=== PATIENT | male | born 1950 | race Caucasian/White ===

== ENCOUNTER 2022-10-13 14:35 | Emergency (ER) | payer MEDICARE, OTHER ==
[2022-10-13 14:44] VITALS: O2SAT 97
--- NOTE | 2022-10-13 15:12 | ERPHSYRPT ---
- History of Present Illness Time Seen by Provider: 10/13/22 15:09 Historian: patient Exam Limitations: no limitations Patient Subjective Stated Complaint: PT states "I was cutting boxes with a utility knife in a downward angle and I hit my belly with the knife." Triage Nursing Assessment: Pt presented alert and oriented X 3, skin pwd. PT ambulates with an upright steady gait, able to speak in clear full sentences. Pt has laceration/puncture 2 cm x0.3 cm. Bleeding is controlled upon arrival. Physician History: Patient is a 72-year-old male presents to emergency department for evaluation status post injury with a call box wirer. Injury occurred just prior to arrival .patient was cutting cardboard boxes with a call box wirer when the call box wirer slipped and lacerated into his right abdomen. Patient states initially began to bleed. No significant pain at this time. Patient declined pain medication. Patient otherwise healthy. No other injuries reported. Patient voices no other complaints or concerns at this time. Portions of this note were created with voice recognition technology. There may be grammatical, spelling, punctuation or sound alike errors Timing/Duration: today Activities at Onset: none Quality: other (No active pain at this time.) Abdominal Pain Onset Location: unknown (Right mid abdomen) Pain Radiation: no radiation Severity of Pain-Max: moderate Severity of Pain-Current: mild Modifying Factors: Improves With: nothing Associated Symptoms: denies symptoms Previous symptoms: no prior history Allergies/Adverse Reactions: ethinyl estradiol [From Seasonale ()] Adverse Reaction (Mild, Verified 10/13/22 14:44) congestion levonorgestrel [From Seasonale ()] Adverse Reaction (Mild, Verified 10/13/22 14:44) congestion Hx Tetanus, Diphtheria Vaccination/Date Given: No Hx Influenza Vaccination/Date Given: No Hx Pneumococcal Vaccination/Date Given: No Immunizations Up to Date: No Travel Risk - International Travel Have you traveled outside of the country in past 3 weeks: No - Coronavirus Screening Are you exhibiting any of the following symptoms?: No Close contact with a COVID-19 positive Pt in past 14-21 Days: No - Vaccine Status Have you recieved a Covid-19 vaccination: No - Review of Systems Constitutional: No Symptoms, No Fever, No Chills Eyes: No Symptoms Ears, Nose, & Throat: No Symptoms Respiratory: No Symptoms, No Cough, No Dyspnea Cardiac: No Symptoms, No Chest Pain, No Edema, No Syncope Abdominal/Gastrointestinal: No Symptoms, No Abdominal Pain, No Nausea, No Vomiting, No Diarrhea Genitourinary Symptoms: No Symptoms, No Dysuria Musculoskeletal: No Symptoms, No Back Pain, No Neck Pain Skin: No Symptoms, No Rash Neurological: No Symptoms, No Dizziness, No Focal Weakness, No Sensory Changes Psychological: No Symptoms Endocrine: No Symptoms Hematologic/Lymphatic: No Symptoms Immunological/Allergic: No Symptoms All Other Systems: Reviewed and Negative - Past Medical History Pertinent Past Medical History: Yes Neurological History: No Pertinent History Cardiac History: No Pertinent History Respiratory History: No Pertinent History Endocrine Medical History: Other Musculoskeletal History: Osteoarthritis Other Medical History: Borderline DMII - Past Surgical History Past Surgical History: Yes Other Surgical History: left hip - Social History Smoking Status: Never smoker Exposure to second hand smoke: No Drug Use: none Patient Lives Alone: Yes - Nursing Vital Signs Nursing Vital Signs: Initial Vital Signs Temperature 98.1 F 10/13/22 14:36 Pulse Rate 69 10/13/22 14:36 Respiratory Rate 20 10/13/22 14:36 Blood Pressure 159/69 10/13/22 14:36 O2 Sat by Pulse Oximetry 97 10/13/22 14:36 Pain Scale Pain Intensity 0 - Physical Exam General Appearance: no apparent distress, alert Eye Exam: PERRL/EOMI, eyes nml inspection Ears, Nose, Throat Exam: normal ENT inspection, pharynx normal, moist mucous membranes Neck Exam: normal inspection, non-tender, supple, full range of motion Respiratory Exam: normal breath sounds, lungs clear, airway intact, No respiratory distress Cardiovascular Exam: regular rate/rhythm, normal heart sounds Gastrointestinal/Abdomen Exam: soft, other (2 cm laceration right lateral abdominal wall. No active bleeding.), No tenderness, No mass Back Exam: normal inspection, normal range of motion, No CVA tenderness, No vertebral tenderness Extremity Exam: normal inspection, normal range of motion, pelvis stable Neurologic Exam: alert, oriented x 3, cooperative, normal mood/affect, sensation nml, No motor deficits Skin Exam: normal color, warm, dry Lymphatic Exam: No adenopathy SpO2 Interpretation: normal SpO2: 97 O2 Delivery: Room Air Procedures - Laceration/Wound Repair Hip Time of Procedure: 16:19 Wound Length (cm): 2 Wound Explored: clean Irrigated: Yes Hibiclens Prep: Yes Anesthesia: local, 1% Lidocaine Volume Anesthetic (ccs): 4 Wound Repaired With: sutures (No debridement indicated) Suture Size/Type: 4-0, nylon Number of Sutures: 5 Layer Closure?: No Sterile Dressing Applied?: Yes Splint Applied?: No Progress: 10/13/22 16:20 Patient tolerated procedure well. No intra or postprocedural complications. - Course Nursing assessment & vital signs reviewed: Yes - CT Exams Abdomen/Pelvis CT Interpretation: Tele-radiologist Report (Diverticulosis, 1.7 cm gallstone, 4.4 cm left exophytic renal cyst) Ordered Tests: Active Orders 24 hr Category Date Time Status ABDOMEN AND PELVIS W/0 CONTRAS [CT] Stat Exams 10/13/22 14:37 Completed Medication Summary Discontinued Medications Generic Name Dose Route Start Last Admin Trade Name Freq PRN Reason Stop Dose Admin Diphtheria/Tetanus/Acell Pertussis 0.5 ml 10/13/22 16:21 10/13/22 16:27 Tdap --Diph,Pertuss(Acell),Tet Vac/Pf 0.5 Ml Vial IM 10/13/22 16:22 0.5 ml .ONCE ONE Administration Diphtheria/Tetanus/Acell Pertussis Confirm 10/13/22 16:25 Tdap --Diph,Pertuss(Acell),Tet Vac/Pf 0.5 Ml Vial Administered 10/13/22 16:26 Dose 0.5 ml IM .STK-MED ONE Lidocaine HCl Confirm 10/13/22 15:53 Lidocaine Hcl 1% 20 Ml Mdv 20 Ml Ml Administered 10/13/22 15:54 Dose 1 ml .ROUTE .STK-MED ONE Lidocaine HCl 4 ml 10/13/22 16:22 10/13/22 16:27 Lidocaine Hcl 1% 20 Ml Mdv 20 Ml Ml IJ 10/13/22 16:23 4 ml STAT ONE Administration Lidocaine HCl Confirm 10/13/22 16:25 Lidocaine Hcl 1% 20 Ml Mdv 20 Ml Ml Administered 10/13/22 16:26 Dose 4 ml .ROUTE .STK-MED ONE - Progress Progress: improved Progress Note: 72-year-old male presents to our ED with a laceration to the abdominal wall using a call box wirer. The injury was accidental. CT scan did not reveal violation of the peritoneum. No free air or fluid observed. 10/13/22 16:21 Patient presenting complaint is acute. Complexity of problem addressed is low acute uncomplicated. No critical care time Complexity of data reviewed and analyzed is low. CT scan ordered. Report reviewed by Dr. Connelly. Incidental finding of a left renal cyst, gallstone diverticulosis. Risk of complication and or risk morbidity/mortality patient management is moderate. Tetanus is not up-to-date. Patient received a dose of Adacel in our ED. A prophylactic course of antibiotic forwarded to patient's pharmacy. We will discharge home. Patient agrees to follow-up with his primary care doctor within 48 hours for reevaluation. Vital stable. Portions of this note were created with voice recognition technology. There may be grammatical, spelling, punctuation or sound alike errors 10/13/22 16:33 Counseled pt/family regarding: diagnosis, need for follow-up, rad results - Departure Departure Disposition: Home Clinical Impression: Gallstone, Left renal exophytic cyst, Diverticulosis, Laceration Condition: Stable Critical Care Time: No Referrals: DIGNA DAWSON [NON-STAFF PHY W/O PRIVILEGES] - Follow up/PCP as directed Instructions: Laceration Repair With Marcy (DC) Additional Instructions: Discharge/Care Plan STALIN TSAI was seen on 10/13/22 in the Emergency Room. The patient was counseled regarding Diagnosis,Lab results, Imaging studies, need for follow up and when to return to the Emergency Room. Prescriptions given: Discharge Note I have spoken with the patient and/or caregivers. I have explained the patient's condition, diagnosis and treatment plan based on the information available to me at this time. I have answered the patient's and/or caregiver's questions and addressed any concerns. The patient and/or caregivers have as good understanding of the patient's diagnosis, condition and treatment plan as can be expected at this point. The vital signs have been stable. The patient's condition is stable and appropriate for discharge from the emergency department. The patient will pursue further outpatient evaluation with the primary care phys ician or other designated or consulting physician as outlined in the discharge instructions. The patient and/or caregivers are agreeable to this plan of care and follow-up instructions have been explained in detail. The patient and/or caregivers have received these instruction. The patient/and or caregivers are aware that any significant change in condition or worsening of symptoms should prompt an immediate return to this or the closest emergency department or call 911. Prescriptions: Cephalexin Mh 500 mg [Keflex 500 mg] 500 mg PO TID #21 cap
--- NOTE | 2022-10-13 15:33 | XRAY ---
Indication: Right intra-abdominal wall laceration. Multiple contiguous axial images obtained through the abdomen and pelvis without contrast. Cutaneous BB placed over region of interest. Comparison: None Lung bases demonstrates dependent atelectasis. No infiltrate, effusion, or pneumothorax. Heart not enlarged. Small hiatal hernia. Cutaneous BB seen right mid abdomen where there is tiny subcutaneous air bubble from laceration. No focal solid/cystic mass, abnormal fluid collection, or ventral hernia. Noncontrasted stomach and bowel loops appear nonobstructed with normal appendix. Mild diffuse scattered colonic fecal debris and moderate diffuse scattered colonic diverticulosis without diverticulitis. 1.7 cm gallstone and 4.4 cm left renal exophytic cyst. No free fluid/air. Remaining liver, gallbladder, pancreas, spleen, adrenal glands, kidneys, ureters, and bladder are unremarkable for noncontrast exam. Minimal aortoiliac calcifications without AAA. Osseous structures intact with osteopenia, mild degenerative changes throughout the spine, and left total hip arthroplasty Impression: 1. Subcutaneous air bubble at site of laceration. 2. Mild diffuse fecal stasis. 3. Chronic findings including small hiatal hernia, gallstone, left renal exophytic cyst, chronic bony findings, and minimal arteriosclerotic disease.
[2022-10-13] MEDS ORDERED: XYLOCAINE 1% HCL 20 ML MDV ONE ×2 (15:53→16:25)
[2022-10-13] MEDS ORDERED: Adacel Vial IM ONE ×2 (16:21→16:25)
[2022-10-13 16:22] VITALS: BP 126/70; PULSE 70
[2022-10-13] MEDS ORDERED: XYLOCAINE 1% HCL 20 ML MDV IJ ONE (16:22)
== END 2022-10-13 16:40 | disposition home or self-care (01) ==
LOC: ED 14:35
DX: S31.119A Laceration without foreign body of abdominal wall, unspecified quadrant without penetration into peritoneal cavity, initial encounter (principal); W26.0XXA Contact with knife, initial encounter; K80.20 Calculus of gallbladder without cholecystitis without obstruction; N28.1 Cyst of kidney, acquired; K57.90 Diverticulosis of intestine, part unspecified, without perforation or abscess without bleeding; Z28.310 Unvaccinated for COVID-19
CPT/HCPCS: 12001; 74176; 90471; 90715; 99284

== ENCOUNTER 2022-10-24 14:30 | Emergency (ER) | payer OTHER ==
--- NOTE | 2022-10-24 14:35 | ERPHSYRPT ---
- History of Present Illness Time Seen by Provider: 10/24/22 14:35 Source: patient Exam Limitations: no limitations Physician History: Patient is a 72-year-old male who underwent laceration repair of a 1-1/2 cm skin laceration right lower quadrant of the abdominal wall. There have been no complaints with regard to the laceration repair site. Patient is here for wound evaluation and suture removal. Quality: other (No pain) Location: other (Skin of the abdominal wall right lower quadrant) Associated Symptoms: denies symptoms Allergies/Adverse Reactions: ethinyl estradiol [From Seasonale ()] Adverse Reaction (Mild, Verified 10/13/22 14:44) congestion levonorgestrel [From Seasonale ()] Adverse Reaction (Mild, Verified 10/13/22 14:44) congestion Hx Tetanus, Diphtheria Vaccination/Date Given: No Hx Influenza Vaccination/Date Given: No Hx Pneumococcal Vaccination/Date Given: No Travel Risk - International Travel Have you traveled outside of the country in past 3 weeks: No - Coronavirus Screening Are you exhibiting any of the following symptoms?: No Close contact with a COVID-19 positive Pt in past 14-21 Days: No - Vaccine Status Have you recieved a Covid-19 vaccination: No - Review of Systems Constitutional: No Symptoms Eyes: No Symptoms Ears, Nose, & Throat: No Symptoms Respiratory: No Symptoms Cardiac: No Symptoms Abdominal/Gastrointestinal: No Symptoms Genitourinary Symptoms: No Symptoms Musculoskeletal: No Symptoms Skin: No Symptoms Neurological: No Symptoms Psychological: No Symptoms Endocrine: No Symptoms Hematologic/Lymphatic: No Symptoms Immunological/Allergic: No Symptoms All Other Systems: Reviewed and Negative - Past Medical History Pertinent Past Medical History: Yes Neurological History: No Pertinent History Cardiac History: No Pertinent History Respiratory History: No Pertinent History Endocrine Medical History: Other Musculoskeletal History: Osteoarthritis Other Medical History: Borderline DMII - Past Surgical History Past Surgical History: Yes Other Surgical History: left hip - Social History Smoking Status: Never smoker Exposure to second hand smoke: No Drug Use: none Patient Lives Alone: Yes - Nursing Vital Signs Nursing Vital Signs: Initial Vital Signs Temperature 97.3 F 10/24/22 14:38 Pulse Rate 63 10/24/22 14:38 Respiratory Rate 15 10/24/22 14:38 Blood Pressure 164/77 10/24/22 14:38 O2 Sat by Pulse Oximetry 97 10/24/22 14:38 Pain Scale Pain Intensity 0 - Physical Exam General Appearance: no apparent distress, alert, anxiety Eye Exam: PERRL/EOMI, eyes nml inspection Ears, Nose, Throat Exam: normal ENT inspection, moist mucous membranes Neck Exam: normal inspection, non-tender, supple, full range of motion Respiratory Exam: airway intact, No chest tenderness, No respiratory distress Gastrointestinal/Abdomen Exam: No tenderness Rectal Exam: not done Back Exam: normal inspection, normal range of motion, No CVA tenderness, No vertebral tenderness Extremity Exam: normal inspection, normal range of motion, pelvis stable Neurologic Exam: alert, oriented x 3, cooperative, medicaid service coordinator II-XII nml as tested, normal mood/affect, nml cerebellar function, nml station & gait, sensation nml Skin Exam: laceration (Surgery repair site clean dry intact with 5 nylon sutures. Sutures removed. Area was cleaned dried and bandage was placed overlying) Lymphatic Exam: No adenopathy SpO2 Interpretation: normal O2 Delivery: Room Air - Progress Progress: improved Progress Note: 10/24/22 14:56 This patient's medical issue is 1 of low complexity. No laboratory or radiographic studies necessary. Counseled pt/family regarding: diagnosis, need for follow-up Medical Desision Making - Diagnostic Testing Diagnostic test were ordered, analyzed, and reviewed by me: No - Risk of complications Minimal Risk: Minimal risk of morbidity - Departure Departure Disposition: Home Clinical Impression: Visit for suture removal Condition: Stable Critical Care Time: No Referrals: TONIE CARLISLE MD [Primary Care Provider] - Follow up/PCP as directed Additional Instructions: Keep the area clean and dry. Avoid excessive activity and excessive moisture. Cover the site with a bandage daily and change as necessary.
[2022-10-24 15:06] VITALS: BP 159/74; PULSE 67; O2SAT 96
== END 2022-10-24 15:06 | disposition home or self-care (01) ==
LOC: ED 14:30
DX: Z48.02 Encounter for removal of sutures (principal)
CPT/HCPCS: 99281

== ENCOUNTER 2022-12-03 17:48 | Emergency (ER) | payer MEDICARE ==
[2022-12-03 18:39] LABS: Absolute Neutrophil Ct (ANC) 8.06 x10^3/uL (1.4-6.9); BASOPHIL % 0.2 % (0.0-0.4); Basophil (Absolute #) 0.02 x10^3/uL (0-0.4); Eosinophil % 0.4 % (0.00-5.0); Eosinophil (Absolute #) 0.04 x10^3/uL (0-0.5); Hematocrit 41.2 % (42-50); Hemoglobin 13.6 g/dL (12.5-18.0); IMMATURE GRAN # 0.04 x10^3u/L (0.00-0.03); IMMATURE GRAN % 0.4 % (0.00-0.4); Lymphocyte (Absolute #) 1.27 x10^3/uL (1.0-4.6); Lymphocytes % 12.1 % (24.0-44.0); Mean Corpuscular Hemoglobin 29.7 pg (26-32); Mean Platelet Volume 10.7 fL (7.5-11.0); Monocyte (Absolute #) 1.09 x10^3/uL (0.0-1.3); Monocytes % 10.4 % (0.0-12.0); Neutrophil % 76.5 % (36.0-66.0); Platelet Count 179 x10^3/uL (150-450); Red Blood Count 4.58 x10^6/uL (4.1-5.6); Red Cell Distribution Width 13.5 % (11.5-14.0); White Blood Count 10.5 x10^3/uL (4.0-10.5)
--- NOTE | 2022-12-03 18:45 | ERPHSYRPT ---
- History of Present Illness Historian: patient Exam Limitations: no limitations Patient Subjective Stated Complaint: PT HERE FOR LOW GRADE FEVER, LOWER ABD PAIN OVER THE WEEKEND, NO PAIN NOW, Triage Nursing Assessment: PT ALERT, WALKED IN, RESP EASY, SKIN W/D/P, ABD SOFT, NO PAIN NOW Timing/Duration: day(s) (2 days) Activities at Onset: rest Quality: sharpness Abdominal Pain Onset Location: LLQ Pain Radiation: no radiation Severity of Pain-Max: moderate Severity of Pain-Current: none Modifying Factors: Improves With: nothing Associated Symptoms: denies symptoms, nausea Previous symptoms: no prior history Hx Tetanus, Diphtheria Vaccination/Date Given: No Hx Influenza Vaccination/Date Given: No Hx Pneumococcal Vaccination/Date Given: No Immunizations Up to Date: Yes <QUE ZAMORA - Last Filed: 12/03/22 19:00> <JAE CONNELLY - Last Filed: 12/03/22 20:25> - History of Present Illness Physician History: 72 yo WM w LLQ pain x 2 days. Pain is 0 now but has been up to a 7/10. It is described as sharp and nothing makes it better/worse. He has had nausea wo vomiting/diarrhea/melena/hematochezia/dysuria/hematuria/fever/chest pain. Pt has had no abdominal surgeries. (QUE ZAMORA) Allergies/Adverse Reactions: ethinyl estradiol [From e ()] Adverse Reaction (Mild, Verified 12/03/22 17:52) congestion levonorgestrel [From ()] Adverse Reaction (Mild, Verified 12/03/22 17:52) congestion Travel Risk - International Travel Have you traveled outside of the country in past 3 weeks: No - Coronavirus Screening Are you exhibiting any of the following symptoms?: Yes Symptoms: Fever Close contact with a COVID-19 positive Pt in past 14-21 Days: No - Vaccine Status Have you recieved a Covid-19 vaccination: No <QUE ZAMORA - Last Filed: 12/03/22 19:00> - Review of Systems Constitutional: No Symptoms Eyes: No Symptoms Ears, Nose, & Throat: No Symptoms Respiratory: No Symptoms Cardiac: No Symptoms Abdominal/Gastrointestinal: No Symptoms, Abdominal Pain, Nausea Genitourinary Symptoms: No Symptoms Musculoskeletal: No Symptoms Skin: No Symptoms Neurological: No Symptoms Psychological: No Symptoms Endocrine: No Symptoms Hematologic/Lymphatic: No Symptoms Immunological/Allergic: No Symptoms <NOAHQUE - Last Filed: 12/03/22 19:00> - Past Medical History Pertinent Past Medical History: Yes Neurological History: No Pertinent History Cardiac History: No Pertinent History Respiratory History: No Pertinent History Endocrine Medical History: Other Musculoskeletal History: Osteoarthritis GI Medical History: Diverticulitis Other Medical History: Borderline DMII - Past Surgical History Past Surgical History: Yes Other Surgical History: left hip - Social History Smoking Status: Never smoker Exposure to second hand smoke: No Drug Use: none Patient Lives Alone: No <NOAHQUE - Last Filed: 12/03/22 19:00> - Physical Exam General Appearance: no apparent distress Eye Exam: PERRL/EOMI, eyes nml inspection Ears, Nose, Throat Exam: normal ENT inspection, TMs normal, pharynx normal, moist mucous membranes Neck Exam: normal inspection, non-tender, supple, full range of motion, No meningismus, No mass, No Brudzinski, No Kernig's Respiratory Exam: normal breath sounds, lungs clear, airway intact Cardiovascular Exam: regular rate/rhythm, normal heart sounds, normal peripheral pulses, capillary refill <2 sec, No murmur Gastrointestinal/Abdomen Exam: soft, normal bowel sounds, tenderness (Mild LLQ TTP wo guarding or rebound) Extremity Exam: normal inspection, normal range of motion Neurologic Exam: alert, oriented x 3, cooperative, voice network engineer II-XII nml as tested, normal mood/affect, nml cerebellar function, nml station & gait, sensation nml Skin Exam: normal color, warm, dry Lymphatic Exam: No adenopathy SpO2 Interpretation: normal SpO2: 98 O2 Delivery: Room Air <NOAHQUE - Last Filed: 12/03/22 19:00> - Nursing Vital Signs Nursing Vital Signs: Initial Vital Signs Temperature 99.7 F 12/03/22 17:55 Pulse Rate 72 12/03/22 17:55 Respiratory Rate 18 12/03/22 17:55 Blood Pressure 150/64 12/03/22 17:55 O2 Sat by Pulse Oximetry 98 12/03/22 17:55 Pain Scale Pain Intensity 0 Hypertensive (QUE ZAMORA) - Course Nursing assessment & vital signs reviewed: Yes <QUE ZAMORA - Last Filed: 12/03/22 19:00> - CT Exams Abdomen/Pelvis CT Interpretation: Tele-radiologist Report (New mild distal descending diverticulitis with tiny free fluid. No free air. Stable hiatal hernia gallstone left renal cyst and diffuse diverticulosis) <JAE CONNELLY - Last Filed: 12/03/22 20:25> Ordered Tests: Active Orders 24 hr Category Date Time Status ABDOMEN AND PELVIS W/0 CONTRAS [CT] Stat Exams 12/03/22 18:30 Taken AMYLASE Stat Lab 12/03/22 18:35 Completed CBC W DIFF Stat Lab 12/03/22 18:35 Completed CMP Stat Lab 12/03/22 18:35 Completed LIPASE Stat Lab 12/03/22 18:35 Completed UA W/RFX UR CULTURE Stat Lab 12/03/22 18:47 Completed Lab/Rad Data: Laboratory Result Diagrams 12/03/22 18:35 12/03/22 18:35 Laboratory Results 12/03/22 12/03/22 12/03/22 Range/Units 18:47 18:35 18:35 WBC 10.5 (4.0-10.5) x10^3/uL RBC 4.58 (4.1-5.6) x10^6/uL Hgb 13.6 (12.5-18.0) g/dL Hct 41.2 L (42-50) % MCV 90.0 (78-100) fL MCH 29.7 (26-32) pg MCHC 33.0 (32-36) g/dL RDW 13.5 (11.5-14.0) % Plt Count 179 (150-450) x10^3/uL MPV 10.7 (7.5-11.0) fL Gran % 76.5 H (36.0-66.0) % Immature Gran % (Auto) 0.4 (0.00-0.4) % Nucleat RBC Rel Count 0.0 (0.00-0.1) % Eos # (Auto) 0.04 (0-0.5) x10^3/uL Immature Gran # (Auto) 0.04 H (0.00-0.03) x10^3u/L Absolute Lymphs (auto) 1.27 (1.0-4.6) x10^3/uL Absolute Monos (auto) 1.09 (0.0-1.3) x10^3/uL Absolute Nucleated RBC 0.00 (0.00-0.01) x10^3u/L Lymphocytes % 12.1 L (24.0-44.0) % Monocytes % 10.4 (0.0-12.0) % Eosinophils % 0.4 (0.00-5.0) % Basophils % 0.2 (0.0-0.4) % Absolute Granulocytes 8.06 H (1.4-6.9) x10^3/uL Basophils # 0.02 (0-0.4) x10^3/uL Sodium 135 L (137-145) mmol/L Potassium 4.2 (3.5-5.1) mmol/L Chloride 101 (98-107) mmol/L Carbon Dioxide 25 (22-30) mmol/L Anion Gap 12.9 (5-15) MEQ/L BUN 19 (9-20) mg/dL Creatinine 0.76 (0.66-1.25) mg/dL Estimated GFR > 60.0 ML/MIN Glucose 91 (74-106) mg/dL Calcium 8.5 (8.4-10.2) mg/dL Total Bilirubin 1.30 (0.2-1.3) mg/dL AST 27 (17-59) U/L ALT 24 (0-50) U/L Alkaline Phosphatase 89 (38-126) U/L Serum Total Protein 6.6 (6.3-8.2) g/dL Albumin 3.7 (3.5-5.0) g/dL Amylase 65 (30-110) U/L Lipase 103 (23-300) U/L Urine Color Dark Yellow (Yellow) Urine Appearance Clear (Clear) Urine pH 6.0 (4.6-8.0) Ur Specific [place] 1.025 (1.005-1.030) Urine Protein Trace A (Negative) Urine Glucose (UA) Negative (Negative) mg/dL Urine Ketones Trace A (Negative) Urine Blood Negative (Negative) Urine Nitrite Negative (Negative) Urine Bilirubin Negative (Negative) Urine Urobilinogen 1.0 A (0.2) mg/dL Ur Leukocyte Esterase Trace A (Negative) U Hyaline Cast (Auto) NONE SEEN (0-2) /LPF Urine Microscopic RBC 0-2 (0-5) /HPF Urine Microscopic WBC 0-2 (0-5) /HPF Ur Epithelial Cells None Seen (None Seen) /HPF Urine Bacteria None Seen (None Seen) /HPF Urine Culture Reflexed NO (NO) <QUE ZAMORA - Last Filed: 12/03/22 19:00> - Progress Progress: improved Counseled pt/family regarding: lab results, diagnosis, need for follow-up, rad results <JAE CONNELLY - Last Filed: 12/03/22 20:25> - Progress Progress Note: 12/03/22 19:00 Care turned over to DR. Connelly at 19:00 w labs pending (GABRIELAQUE OLEA) Patient endorsed to Dr. Connelly at approximately [address] Connelly advised to follow- up on pending CAT scan and labs and disposition patient. CT scan reveals a mild distal descending diverticulitis. Patient feels well. He has no abdominal pain. Patient requesting discharge home. We will treat patient with Augmentin p.o. twice daily for 1 week. We will implement bowel rest via clear liquids. Patient states he lives nearby and can come back to our ED if symptoms worsen. We will comply patient's request and discharge patient home with oral antibiotics. CBC is essentially normal. No leukocytosis. No significant findings on chemistry. UA negative. No indication for further work-up. Will discharge home. Patient received an oral dose of Augmentin in our ED. A pre scription for the same was forwarded to patient's pharmacy. Patient agrees to follow-up with his primary care doctor within 48 hours for reevaluation. He voices no other complaints or concerns at this time. Portions of this note were created with voice recognition technology. There may be grammatical, spelling, punctuation or sound alike errors 12/03/22 20:20 Complexity of problem addressed is moderate acute complicated. No critical care time Complexity of data reviewed and analyzed is moderate. Test ordered test reviewed and analyzed. The findings were clinically correlated with patient's clinical presentation. CAT scan report was also read and clinically correlated with patient's clinical presentation. We considered the patient's request. Risk of complication and or risk morbidity/mortality patient management is moderate. Oral antibiotic received in our ED. A prescription for the same was forwarded to patient's pharmacy. Plan of care established for shared decision making. Patient served as independent historian. We will discharge patient home. No social determinants of health present to impede follow-up. Time to discharge patient is approximately 15 minutes. Portions of this note were created with voice recognition technology. There may be grammatical, spelling, punctuation or sound alike errors 12/03/22 20:21 (JAE CONNELLY) <QUE ZAMORA - Last Filed: 12/03/22 19:00> - Departure Departure Disposition: Home Critical Care Time: No <JAE CONNELLY - Last Filed: 12/03/22 20:25> - Departure Clinical Impression: Abdominal pain, Diverticulitis, Diverticulosis, Gallstone, Renal cyst, Hiatal hernia Condition: Stable Referrals: TONIE CARLISLE MD [Primary Care Provider] - Follow up/PCP as directed Additional Instructions: Discharge/Care Plan STALIN TSAI was seen on 12/03/22 in the Emergency Room. The patient was counseled regarding Diagnosis,Lab results, Imaging studies, need for follow up and when to return to the Emergency Room. Prescriptions given: Discharge Note I have spoken with the patient and/or caregivers. I have explained the patient's condition, diagnosis and treatment plan based on the information available to me at this time. I have answered the patient's and/or caregiver's questions and addressed any concerns. The patient and/or caregivers have as good understanding of the patient's diagnosis, condition and treatment plan as can be expected at this point. The vital signs have been stable. The patient's condition is stable and appropriate for discharge from the emergency department. The patient will pursue further outpatient evaluation with the primary care physician or other designated or consulting physician as outlined in the disch arge instructions. The patient and/or caregivers are agreeable to this plan of care and follow-up instructions have been explained in detail. The patient and/or caregivers have received these instruction. The patient/and or caregivers are aware that any significant change in condition or worsening of symptoms should prompt an immediate return to this or the closest emergency department or call 911. Prescriptions: Amox Tr/Potass Clav. 875 mg [Augmentin 875-125 Tablet] 875 mg PO BID 7 Days #14 tablet
[2022-12-03 19:02] LABS: ALBUMIN 3.7 g/dL (3.5-5.0); ALKALINE PHOSPHATASE 89 U/L (38-126); AMYLASE 65 U/L (30-110); ANION GAP 12.9 MEQ/L (5-15); BLOOD UREA NITROGEN 19 mg/dL (9-20); CHLORIDE 101 mmol/L (98-107); Calcium 8.5 mg/dL (8.4-10.2); Carbon Dioxide 25 mmol/L (22-30); Creatinine 1 0.76 mg/dL (0.66-1.25); EST GLOMERULAR FILTRATION RATE > 60.0 ML/MIN; Glucose 91 mg/dL (74-106); LIPASE 103 U/L (23-300); Potassium 4.2 mmol/L (3.5-5.1); SGOT/AST 27 U/L (17-59); SGPT/ALT 24 U/L (0-50); SODIUM 135 mmol/L (137-145); Total Protein 6.6 g/dL (6.3-8.2)
[2022-12-03 19:30] LABS: Appearance Clear (Clear); Bacteria None Seen /HPF (None Seen); Bilirubin Negative (Negative); Blood Negative (Negative); Epithelial Cells None Seen /HPF (None Seen); Glucose, Urine Negative (Negative); Hyaline Casts NONE SEEN /LPF (0-2); Ketones Trace (Negative); Leukocyte Esterase Trace (Negative); Nitrite Negative (Negative); Protein,Urine Dip Trace (Negative); RBC 0-2 /HPF (0-5); Specific Gravity 1.025 (1.005-1.030); WBC 0-2 /HPF (0-5)
[2022-12-03 19:31] LABS: ADD URINE CULTURE? NO (NO)
[2022-12-03] MEDS ORDERED: Augmentin 875-125 Tablet PO ONE (20:10)
[2022-12-03 20:11] VITALS: BP 153/70; PULSE 67; O2SAT 95
[2022-12-03] MEDS ORDERED: Augmentin 875-125 Tablet ONE (20:12)
--- NOTE | 2022-12-04 08:40 | XRAY ---
Indication: Left lower quadrant pain and fever. Multiple contiguous axial images obtained through the abdomen and pelvis without contrast. Comparison: October 13, 2022 Lung bases again demonstrate minimal subsegmental atelectasis/scarring. Heart not enlarged. Stable small hiatal hernia. Noncontrasted stomach and bowel loops appear nonobstructed again with normal appendix. There remains diffuse colonic diverticulosis. Distal descending colon demonstrates new short focus of mild wall thickening with pericolonic stranding favoring acute diverticulitis. Tiny free fluid but no walled off fluid collection or free air. Stable 1.1 cm gallstone and 4.4 cm left renal cyst. Remaining liver, gallbladder, pancreas, spleen, adrenal glands, kidneys, ureters, and bladder are unremarkable for noncontrast exam. Stable minimal aortoiliac calcifications without AAA. Osseous structures intact again with osteopenia, mild multilevel degenerative spondylosis, minimal grade 1 L4 listhesis, and left total hip arthroplasty. Impression: 1. Again diffuse colonic diverticulosis with new mild acute diverticulitis distal descending colon. Tiny free fluid presumed reactive. 2. Chronic findings including hiatal hernia, gallstone, left renal cyst, chronic bony findings, and arteriosclerotic disease.
== END 2022-12-03 20:40 | disposition home or self-care (01) ==
LOC: ED 17:48
DX: R10.32 Left lower quadrant pain (principal); K57.92 Diverticulitis of intestine, part unspecified, without perforation or abscess without bleeding; K57.90 Diverticulosis of intestine, part unspecified, without perforation or abscess without bleeding; K80.20 Calculus of gallbladder without cholecystitis without obstruction; N28.1 Cyst of kidney, acquired; K44.9 Diaphragmatic hernia without obstruction or gangrene; R11.0 Nausea; Z28.310 Unvaccinated for COVID-19
CPT/HCPCS: 36000; 36415; 74176; 80053; 81001; 82150; 83690; 85025; 99283; A9270-GY

== ENCOUNTER 2024-06-01 16:23 | Emergency (ER) | payer MEDICARE ==
[2024-06-01 16:54] VITALS: PULSE 90; RESP 18; TEMP 101.6; O2SAT 95
--- NOTE | 2024-06-01 17:29 | ERPHSYRPT ---
- History of Present Illness Time Seen by Provider: 06/01/24 17:27 Source: patient Exam Limitations: no limitations Patient Subjective Stated Complaint: pt here for possible uti, he states he has had the chills, not eating well, vomiting and decrease urine output. . Triage Nursing Assessment: pt alert, walked in, resp easy, skin hot/d/p, abd sof t, moves all ext well, .urine dark yellow Physician History: Patient is 73-year-old male without any significant past medical history started having a fever with chills and difficulty in urination for last 2 to 3 days. He started having a nausea and vomiting today so he came to the emergency room. Patient denies any other symptoms including blood in the urine or also denies any past history about same type of symptoms. Patient does not take any medication and patient also denies any history of high blood pressure heart disease or diabetes. Timing/Duration: day(s) (Three days) Associated Symptoms: nausea, vomiting, chills, fever Allergies/Adverse Reactions: ethinyl estradiol [From [facility]ale ()] Adverse Reaction (Mild, Verified 06/01/24 16:49) congestion levonorgestrel [From [facility] ()] Adverse Reaction (Mild, Verified 06/01/24 16:49) congestion Hx Tetanus, Diphtheria Vaccination/Date Given: No Hx Influenza Vaccination/Date Given: No Hx Pneumococcal Vaccination/Date Given: No Immunizations Up to Date: Yes Travel Risk - International Travel Have you traveled outside of the country in past 3 weeks: No - Emerging Infectious Disease Are you exhibiting symptoms associated with any current EIDs: No - Review of Systems Constitutional: Fever, Chills Eyes: No Symptoms Ears, Nose, & Throat: No Symptoms Respiratory: No Cough, No Dyspnea Cardiac: No Chest Pain, No Edema, No Syncope Abdominal/Gastrointestinal: No Abdominal Pain, No Nausea, No Vomiting, No Diarrhea Genitourinary Symptoms: Dysuria, Frequency Musculoskeletal: No Back Pain, No Neck Pain Skin: No Rash Neurological: No Dizziness, No Focal Weakness, No Sensory Changes Psychological: No Symptoms Endocrine: No Symptoms All Other Systems: Reviewed and Negative - Past Medical History Pertinent Past Medical History: Yes Neurological History: No Pertinent History Cardiac History: No Pertinent History Respiratory History: No Pertinent History Endocrine Medical History: Other Musculoskeletal History: Osteoarthritis GI Medical History: Diverticulitis Other Medical History: Borderline DMII - Past Surgical History Past Surgical History: Yes Musculoskeletal: Orthopedic Surgery Other Surgical History: bilat hip,wrst - Social History Smoking Status: Never smoker Exposure to second hand smoke: No Drug Use: none Patient Lives Alone: No - Social Determinants of Health Will the patient participate in the screening: Yes Do you worry about a steady place to live?: No Do you have any problems with any of the following?: No known problems In the past 12 months,have you had to go without utilities?: No Transportation Issues: No Has anyone in your support network made you feel unsafe?: No Have you or anyone in your house had to go without enough: No - Nursing Vital Signs Nursing Vital Signs: Initial Vital Signs Temperature 101.6 F 06/01/24 16:53 Pulse Rate 90 06/01/24 16:53 Respiratory Rate 18 06/01/24 16:53 Blood Pressure 168/82 06/01/24 16:53 O2 Sat by Pulse Oximetry 95 06/01/24 16:53 Pain Scale Pain Intensity 0 - Physical Exam General Appearance: no apparent distress, alert Eye Exam: PERRL/EOMI, eyes nml inspection Ears, Nose, Throat Exam: normal ENT inspection, TMs normal, pharynx normal, moist mucous membranes Neck Exam: normal inspection, non-tender, supple, full range of motion Respiratory Exam: normal breath sounds, lungs clear, No respiratory distress Cardiovascular Exam: regular rate/rhythm, normal heart sounds, normal peripheral pulses Gastrointestinal/Abdomen Exam: soft, normal bowel sounds, No tenderness, No mass Back Exam: normal inspection, normal range of motion, No CVA tenderness, No vertebral tenderness Extremity Exam: normal inspection, normal range of motion, pelvis stable Neurologic Exam: alert, oriented x 3, cooperative, normal mood/affect, nml cerebellar function, nml station & gait, sensation nml, No motor deficits Skin Exam: normal color, warm, dry, No rash Lymphatic Exam: No adenopathy SpO2: 95 - Course Nursing assessment & vital signs reviewed: Yes Ordered Tests: Active Orders 24 hr Category Date Time Status CBC W DIFF Stat Lab 06/01/24 17:40 Completed CMP Stat Lab 06/01/24 17:40 Completed CULTURE,URINE Stat Lab 06/01/24 17:18 Received UA W/RFX UR CULTURE Stat Lab 06/01/24 17:18 Completed Medication Summary Generic Name Dose Route Start Last Admin Trade Name Freq PRN Reason Stop Dose Admin Ceftriaxone Sodium 1,000 mg 06/01/24 18:13 Ceftriaxone Sodium 1000 Mg Inj Vial IM 06/01/24 18:14 STAT ONE Discontinued Medications Generic Name Dose Route Start Last Admin Trade Name Sophia PRN Reason Stop Dose Admin Acetaminophen 975 mg 06/01/24 17:08 Acetaminophen 325 Mg Tablet PO 06/01/24 17:09 STAT STA Sodium Chloride 1,000 mls @ 999 mls/hr 06/01/24 17:08 Sodium Chloride 0.9% 1000 Ml IV 06/01/24 18:08 .Q1H1M STA Ondansetron HCl 4 mg 06/01/24 17:08 Ondansetron Hcl 4 Mg/2 Ml Vial IV 06/01/24 17:09 STAT STA Lab/Rad Data: Laboratory Result Diagrams 06/01/24 17:40 06/01/24 17:40 Laboratory Results 06/01/24 06/01/24 06/01/24 Range/Units 17:40 17:40 17:18 WBC 13.8 H (4.23-9.07) x10^3/uL RBC 4.34 L (4.63-6.08) x10^6/uL Hgb 12.6 L (13.7-17.5) g/dL Hct 37.8 L (40.1-51.0) % MCV 87.1 (79.0-92.2) fL MCH 29.0 (25.7-32.2) pg MCHC 33.3 (32.3-36.5) g/dL RDW 14.2 (11.6-14.4) % Plt Count 123 L (163-337) x10^3/uL MPV 9.6 (9.4-12.4) fL Gran % 92.1 H (34.0-67.9) % Immature Gran % (Auto) 1.3 H (0.001-0.429) % Nucleat RBC Rel Count 0.0 (0.00-0.2) % Eos # (Auto) 0.01 L (0.04-0.54) x10^3/uL Immature Gran # (Auto) 0.18 H (0.001-0.031) x10^3u/L Absolute Lymphs (auto) 0.37 L (1.32-3.57) x10^3/uL Absolute Monos (auto) 0.49 (0.30-0.82) x10^3/uL Absolute Nucleated RBC 0.00 (0.00-0.012) x10^3u/L Lymphocytes % 2.7 L (21.8-53.1) % Monocytes % 3.6 L (5.3-12.2) % Eosinophils % 0.1 L (0.8-7.0) % Basophils % 0.2 (0.2-1.2) % Absolute Granulocytes 12.68 H (1.78-5.38) x10^3/uL Basophils # 0.03 (0.01-0.08) x10^3/uL Sodium 131 L (135-145) mmol/L Potassium 3.5 (3.5-5.1) mmol/L Chloride 97 L (98-107) mmol/L Carbon Dioxide 25 (22-30) mmol/L Anion Gap 12.9 (5-15) MEQ/L BUN 25 H (9-20) mg/dL Creatinine 1.03 (0.66-1.25) mg/dL Estimated GFR 75.8 ML/MIN Glucose 154 H (74-106) mg/dL Calcium 8.8 (8.4-10.2) mg/dL Total Bilirubin 1.50 H (0.2-1.3) mg/dL AST 42 (17-59) U/L ALT 38 (0-50) U/L Alkaline Phosphatase 106 (38-126) U/L Serum Total Protein 6.8 (6.3-8.2) g/dL Albumin 3.9 (3.5-5.0) g/dL Urine Color Dark Yellow (Yellow) Urine Appearance Cloudy A (Clear) Urine pH 5.5 (4.6-8.0) Ur Specific Garrison >=1.030 A (1.005-1.030) Urine Protein 100 A (Negative) Urine Glucose (UA) Negative (Negative) mg/dL Urine Ketones Trace A (Negative) Urine Blood Small A (Negative) Urine Nitrite Negative (Negative) Urine Bilirubin Small A (Negative) Urine Urobilinogen 1.0 A (0.2) mg/dL Ur Leukocyte Esterase Trace A (Negative) U Hyaline Cast (Auto) 3-5 A (0-2) /LPF Urine Microscopic RBC 6-10 A (0-5) /HPF Urine Microscopic WBC 3-5 (0-5) /HPF Ur Epithelial Cells Rare (None Seen) /HPF Urine Bacteria None Seen (None Seen) /HPF Urine Culture Reflexed YES (NO) - Progress Progress: improved Counseled pt/family regarding: lab results, diagnosis, need for follow-up Medical Desision Making - Diagnostic Testing Diagnostic test were ordered, analyzed, and reviewed by me: Yes - Risk of complications Minimal Risk: Minimal risk of morbidity - Departure Departure Disposition: Home Clinical Impression: Pyelonephritis due to Escherichia coli Condition: Stable Critical Care Time: No Referrals: TONIE CARLISLE MD [Primary Care Provider] - Follow up with PCP 5 days Instructions: Urinary Tract Infection, Adult (DC) Additional Instructions: Discharge/Care Plan STALIN TSAI was seen on 06/01/24 in the Emergency Room. The patient was counseled regarding Diagnosis,Lab results, Imaging studies, need for follow up and when to return to the Emergency Room. Prescriptions given: Discharge Note I have spoken with the patient and/or caregivers. I have explained the patient's condition, diagnosis and treatment plan based on the information available to me at this time. I have answered the patient's and/or caregiver's questions and addressed any concerns. The patient and/or caregivers have as good understanding of the patient's diagnosis, condition and treatment plan as can be expected at this point. The vital signs have been stable. The patient's condition is stable and appropriate for discharge from the emergency department. The patient will pursue further outpatient evaluation with the primary care physician or other designated or consulting physician as outlined in the discharge instructions. The patient and/or caregivers are agreeable to this plan of care and follow-up instructions have been explained in detail. The patient and/or caregivers have received these instruction. The patient/and or caregivers are aware that any significant change in condition or worsening of symptoms should prompt an immediate return to this or the closest emergency department or call 911. STALIN TSAI was seen on 06/01/24 n the Emergency Room. At that time you were treated for an emergent condition, during your visit Laboratory, Radiology and/or other procedures may have been ordered. It is very important that you follow-up with your Primary Care Physician TONIE CARLISLE within the next 24- 48 hours to review your Emergency Room visit and the final results of testing that was ordered. Some test results such as Urine Cultures, Blood Cultures, and other cultures if ordered will not be finalized for 24-48 hours. If you do not have a Primary Care Provider please call the medical records d epartment at [phone] ext [phone] to obtain a copy of your results or you may sign into our patient portal to obtain these results by visiting us @ [email or web address] and completing the following steps: 1. Click on the Patient Portal link 2. Click the Patient Self Enrollment Link to complete the enrollment form and entering your 3. Once the enrollment form is completed you will receive an email with a temporary ID and password at the email address you provided. 4. Next choose a user name and password. Your user name must be at least 4 characters long and your password must be at least 4 characters long. 5. Choose a security question from the list and provide your answer to the question. If you already have signed into the Health Portal you may access your Health Care Information 29/12 by the following steps: 1. Login to our website @ [email or web address] 2. Enter your original user name and password. FAQS The [facility] Health Portal is an online tool that contains your Lab Results, Radiology Reports, Visit History, Discharge Instructions and Health Summary Lab and Radiology Results will not be available for 72 hours on the portal. The Portal is a secure site, passwords are encryted and URLs are re-written so they cannot be copied and pasted. You and authorized family members are the only ones who can access your Portal. Also there is a timeout feature that protects your information if you leave the Portal page open. If you have technical difficulty please use the Contact Us link on the page this will allow you to submit any questions you have regarding the Portal or you may contact the Medical Record Department at [phone]. Prescriptions: Ciprofloxacin [Cipro 500 MG] 500 mg PO BIDAC #20 tablet
[2024-06-01 17:50] LABS: Absolute Neutrophil Ct (ANC) 12.68 x10^3/uL (1.78-5.38); BASOPHIL % 0.2 % (0.2-1.2); Basophil (Absolute #) 0.03 x10^3/uL (0.01-0.08); Eosinophil % 0.1 % (0.8-7.0); Eosinophil (Absolute #) 0.01 x10^3/uL (0.04-0.54); Hematocrit 37.8 % (40.1-51.0); Hemoglobin 12.6 g/dL (13.7-17.5); IMMATURE GRAN # 0.18 x10^3u/L (0.001-0.031); IMMATURE GRAN % 1.3 % (0.001-0.429); Lymphocyte (Absolute #) 0.37 x10^3/uL (1.32-3.57); Lymphocytes % 2.7 % (21.8-53.1); Mean Cell Volume 87.1 fL (79.0-92.2); Mean Corpuscular Hgb Concent. 33.3 g/dL (32.3-36.5); Mean Platelet Volume 9.6 fL (9.4-12.4); Monocyte (Absolute #) 0.49 x10^3/uL (0.30-0.82); Monocytes % 3.6 % (5.3-12.2); Neutrophil % 92.1 % (34.0-67.9); Platelet Count 123 x10^3/uL (163-337); Red Blood Count 4.34 x10^6/uL (4.63-6.08); Red Cell Distribution Width 14.2 % (11.6-14.4); White Blood Count 13.8 x10^3/uL (4.23-9.07)
[2024-06-01 18:06] LABS: ALBUMIN 3.9 g/dL (3.5-5.0); ANION GAP 12.9 MEQ/L (5-15); BILIRUBIN,TOTAL 1.5 mg/dL (0.2-1.3); Calcium 8.8 mg/dL (8.4-10.2); Creatinine 1 1.03 mg/dL (0.66-1.25); EST GLOMERULAR FILTRATION RATE 75.8 ML/MIN; Potassium 3.5 mmol/L (3.5-5.1); Total Protein 6.8 g/dL (6.3-8.2)
[2024-06-01 18:06] LABS: Appearance Cloudy (Clear); Bacteria None Seen /HPF (None Seen); Bilirubin Small (Negative); Blood Small (Negative); Epithelial Cells Rare /HPF (None Seen); Glucose, Urine Negative (Negative); Ketones Trace (Negative); Leukocyte Esterase Trace (Negative); Nitrite Negative (Negative); Ph 5.5 (4.6-8.0); Protein,Urine Dip 100 (Negative); Specific Gravity >=1.030 (1.005-1.030)
[2024-06-01] MEDS ORDERED: Sodium Chloride 0.9% 1000 ML 1,000 ML ONE (18:19)
[2024-06-01] MEDS ORDERED: TYLENOL 325 MG ONE (18:19)
[2024-06-01] MEDS ORDERED: Zofran 4 MG/2 ML VIAL ONE (18:19)
[2024-06-01] MEDS ORDERED: ROCEPHIN 1 GM / 100 ML NaCl 1 GM/100 ML IVPB IV ONE (18:19)
[2024-06-01] MEDS: Zofran 4 MG/2 ML VIAL IV STA (18:21)
[2024-06-01] MEDS: Sodium Chloride 0.9% 1000 ML 1,000 ML IV STA (18:21)
[2024-06-01] MEDS: TYLENOL 325 MG PO STA (18:21)
[2024-06-01] MEDS: ROCEPHIN 1 GM / 100 ML NaCl 1 GM/100 ML IVPB IV ONE (18:21)
[2024-06-01] MEDS: Rocephin 1000 MG INJ IM ONE (18:22)
[2024-06-01 19:06] VITALS: BP 187/83
[2024-06-02 00:06] LABS: Slide Review 1 YES
== END 2024-06-01 19:14 | disposition home or self-care (01) ==
LOC: ED 16:23
DX: N12 Tubulo-interstitial nephritis, not specified as acute or chronic (principal); B96.20 Unspecified Escherichia coli [E. coli] as the cause of diseases classified elsewhere
CPT/HCPCS: 36415; 80053; 81001; 85025; 87086; 96365; 96372; 96374; 99283; 99284; 99285; J0696; J2405; A9270-GY